=== PATIENT | male | born 1995 | race African-American/Black ===

== ENCOUNTER 2017-06-19 19:42 | Emergency (ER) | payer OTHER ==
[2017-06-19 19:51] VITALS: TEMP 98; BMI 37.9
--- NOTE | 2017-06-19 20:47 | PDOC ---
History of Present Illness - General History Source: Patient Exam Limitations: No Limitations - History of Present Illness Initial Comments: 06/19/17 22:25 The patient is a 21 year old male, with a significant past medical history of anxiety, who presents to the emergency department complaining of a panic attack earlier today. The patient reports he had a panic attack which he could not control with the usual relaxation techniques. Patient reports he tried his exercises, which he learned on youtube 5 times, and states they did not work so he decided to present to the ED. Patient reports he has panic attacks intermittently, and they are usually triggered by stress. The patient denies any hallucinations, or suicidal/homicidal ideations. He denies any chest pain, shortness of breath, diaphoresis, or palpitations. He denies any nausea, vomiting, diarrhea, constipation, or changes in urination patterns. He denies any recent travel or sick contacts. He has never seen a psychiatrist. Allergies: NKDA Past Surgical History: None reported Social History: Marijuana use. No ETOH, tobacco, or other recreational drug use. PCP: Dr. Wetzel <Maged Bacon - Last Filed: 06/19/17 22:25> <Jennie Albright - Last Filed: 06/20/17 03:07> - General Chief Complaint: Psychiatric Stated Complaint: PANIC ATTACK Time Seen by Provider: 06/19/17 20:47 Past History <Maged Bacon - Last Filed: 06/19/17 22:25> - Past Medical History Psychiatric Problems: Yes (panic attacks) - Psycho/Social/Smoking Cessation Hx Suicidal Ideation: No Smoking History: Never smoked Substance Use Type: Marijuana <Jennie Albright - Last Filed: 06/20/17 03:07> - Past Medical History Allergies/Adverse Reactions: Allergies Allergy/AdvReac Type Severity Reaction Status Date / Time No Known Allergies Allergy Verified 06/19/17 19:51 Review of Systems - Review of Systems Able to Perform ROS?: Yes Comments:: 06/19/17 22:25 GENERAL/CONSTITUTIONAL: No fever or chills. No weakness. HEAD, EYES, EARS, NOSE AND THROAT: No change in vision. No ear pain or discharge. No sore throat. CARDIOVASCULAR: No chest pain or shortness of breath. RESPIRATORY: No cough, wheezing, or hemoptysis. GASTROINTESTINAL: No nausea, vomiting, diarrhea or constipation. GENITOURINARY: No dysuria, frequency, or change in urination. MUSCULOSKELETAL: No joint or muscle swelling or pain. No neck or back pain. SKIN: No rash NEUROLOGIC: No headache, vertigo, loss of consciousness, or change in strength/ sensation. ENDOCRINE: No increased thirst. No abnormal weight change. HEMATOLOGIC/LYMPHATIC: No anemia, easy bleeding, or history of blood clots. ALLERGIC/IMMUNOLOGIC: No hives or skin allergy. PSYCH: Yes: +panic attacks. No suicidal or homicidal ideations. <Maged Bacon - Last Filed: 06/19/17 22:25> *Physical Exam - Vital Signs Last Vital Signs Temp Pulse Resp BP Pulse Ox 98 F 68 20 128/78 99 06/19/17 19:46 06/19/17 22:04 06/19/17 22:04 06/19/17 22:04 06/19/17 19:46 - Physical Exam Comments: 06/19/17 22:26 GENERAL: Awake, alert, and fully oriented, in no acute distress HEAD: No signs of trauma EYES: PERRLA, EOMI, sclera anicteric, conjunctiva clear ENT: Auricles normal inspection, hearing grossly normal, nares patent, oropharynx clear without exudates. Moist mucosa NECK: Normal ROM, supple, no lymphadenopathy, JVD, or masses LUNGS: Breath sounds equal, clear to auscultation bilaterally. No wheezes, and no crackles HEART: Regular rate and rhythm, normal S1 and S2, no murmurs, rubs or gallops ABDOMEN: Soft, nontender, normoactive bowel sounds. No guarding, no rebound. No masses EXTREMITIES: Normal range of motion, no edema. No clubbing or cyanosis. No cords, erythema, or tenderness NEUROLOGICAL: Normal speech, cranial nerves intact, negative pronator drift, 5/ 5 strength in all 4 extremities, normal sensation to light touch in all 4 extremities, normal cerebellar exam, normal gait, normal reflexes and tone SKIN: Warm, Dry, normal turgor, no rashes or lesions noted. PSYCH: Normal affect, does not appear anxious at this time, oriented to person, place, and time. The patient was able to demonstrate good judgment and reason, without hallucinations, abnormal affect or abnormal behaviors during the examination. Patient is not suicidal. <Maged Bacon - Last Filed: 06/19/17 22:25> - Vital Signs Last Vital Signs Temp Pulse Resp BP Pulse Ox 98 F 87 18 135/74 99 06/19/17 19:46 06/19/17 19:46 06/19/17 19:46 06/19/17 19:46 06/19/17 19:46 <Jennie Albright - Last Filed: 06/20/17 03:07> Medical Decision Making - Medical Decision Making 06/19/17 22:08 21-year-old healthy male presents with a likely resolved panic attack. Reports panic attacks p/w feeling a sensation of impending doom and that he is floating away from himself. Symptoms worse when smoking marijuana. No CP, SOB, palpitations, LOC. The patient reports that he has panic attacks from time to time and they're often triggered by stress. He has never been diagnosed by a psychiatrist with panic attacks but is requesting to be referred to one. His exam is unremarkable and psychiatrically he did not have any dangerous symptoms in the emergency department. Vitals are stable. No homicidal or suicidal ideation or hallucinations. Will discharge patient and refer to psychiatry. <Jennie Albright - Last Filed: 06/20/17 03:07> *DC/Admit/Observation/Transfer - Attestations Scribe Attestion: 06/19/17 22:26 Documentation prepared by Maged Bacon, acting as medical transcription for Jennie Albright MD. <Maged Bacon - Last Filed: 06/19/17 22:25> - Attestations Physician Attestion: 06/19/17 22:07 I, Dr. Jennie Albright MD, attest that this document has been prepared under my direction and personally reviewed by me in its entirety. I further attest, that it accurately reflects all work, treatment, procedures and medical decision -making performed by me. <Jennie Albright - Last Filed: 06/20/17 03:07> Diagnosis at time of Disposition: Panic attack as reaction to stress - Discharge Dispostion Disposition: HOME Condition at time of disposition: Stable - Referrals Referrals: Amos Wetzel MD [Primary Care Provider] - - Patient Instructions Printed Discharge Instructions: Anxiety and Panic Attacks (Alternative Therapy) Additional Instructions: Call to schedule an appointment with a psychiatrist. Follow up with your primary care doctor within 2-3 days. Return to the emergency department immediately for any new or concerning symptoms or if your symptoms get worse
[2017-06-19 22:04] VITALS: BP 128/78; PULSE 68
== END 2017-06-19 22:10 | disposition home or self-care (01) ==
LOC: JER 19:42
DX: F41.0 Panic disorder [episodic paroxysmal anxiety] (principal)
CPT/HCPCS: 99282-25

== ENCOUNTER 2017-10-19 17:04 | Emergency (ER) | payer OTHER ==
[2017-10-19 17:13] VITALS: BP 143/89; PULSE 91; TEMP 98; BMI 35.4
--- NOTE | 2017-10-19 17:15 | PDOC ---
Rapid Medical Evaluation Chief Complaint: Altered Mental Status Time Seen by Provider: 10/19/17 17:12 Medical Evaluation: Allergies Allergy/AdvReac Type Severity Reaction Status Date / Time No Known Allergies Allergy Verified 06/19/17 19:51 10/19/17 17:12 The patient presents with a chief complaint of: Congestion cold like symptoms for one week. On z-pac. states he is feeling "dazed" I have performed a brief in-person evaluation of this patient; Pertinent physical exam findings: Afebrile, Nasal congestion, CTAB I have ordered the following: Nothing The patient will proceed to the ED for further evaluation.
--- NOTE | 2017-10-19 18:21 | PDOC ---
History of Present Illness - General Chief Complaint: Cold Symptoms Stated Complaint: Feeling "dazed" having a cold Time Seen by Provider: 10/19/17 17:12 History Source: Patient - History of Present Illness Timing/Duration: other Associated Symptoms: denies: chest pain, cough, fever/chills, headaches, nausea/ vomiting Past History - Past Medical History Allergies/Adverse Reactions: Allergies Allergy/AdvReac Type Severity Reaction Status Date / Time No Known Allergies Allergy Verified 10/19/17 17:13 Home Medications: Ambulatory Orders Azithromycin 250 mg PO ASDIR 10/19/17 COPD: No Psychiatric Problems: Yes (panic attacks) - Suicide/Smoking/Psychosocial Hx Smoking History: Never smoked Information on smoking cessation initiated: No Hx Alcohol Use: No Drug/Substance Use Hx: No Substance Use Type: None, Marijuana Review of Systems - Review of Systems Constitutional: No: Chills, Fever HEENTM: Yes: Nose Congestion. No: Ear Pain Respiratory: Yes: Cough. No: Shortness of Breath Cardiac (ROS): No: Chest Pain ABD/GI: No: Nausea, Vomiting Neurological: No: Headache, Dizziness *Physical Exam - Vital Signs Last Vital Signs Temp Pulse Resp BP Pulse Ox 98 F 91 H 18 143/89 100 10/19/17 17:08 10/19/17 17:08 10/19/17 17:08 10/19/17 17:08 10/19/17 17:08 - Physical Exam General Appearance: Yes: Appropriately Dressed. No: Apparent Distress HEENT: positive: Normal ENT Inspection, Normal Voice. negative: Scleral Icterus (R), Scleral Icterus (L) Neck: positive: Supple Respiratory/Chest: negative: Respiratory Distress Integumentary: positive: Dry, Warm Neurologic: positive: Fully Oriented, Alert, Normal Mood/Affect, Motor Strength 5/5, Other ED Treatment Course - LABORATORY CBC & Chemistry Diagram: 10/19/17 18:19 10/19/17 18:19 Medical Decision Making - Medical Decision Making 10/19/17 18:16 21-year-old male history of panic attacks, not on any medications, here with a constellation of symptoms including intermittent confusion where he feels dazed with disorganized thoughts and a sense of "derealization" x 4 days. Denies auditory/visual hallucinations but reports that his sense of taste and smell seem to be different at times. Denies delusions, SI or HI. No current anxiety. No h/o similar sxs. No sig fmhx. No new meds except for zpack which his PMD, started him on for URI 4 days ago. States symptom was present prior to starting medication. Patient admits to smoking marijuana in the past but has since discontinued as it triggers his anxiety. Denies any other illicit drug use. See exam Possible mood vs thought disorder Not currently displaying signs of psychosis in ER and no SI or HI currently -will get basic labs today including TSH and utox -Anticipate dc w/ psych referral 10/19/17 19:21 Labs unremarkable. Patient remains stable in ED. Will discharge and stress the importance of f/u with psychiatry. Patient informs me that he has a psychiatrist in mind to follow-up with and will call tomorrow. I had extended conversation with patient's girlfriend in private, who states her relationship with patient is fairly new, but that she knows "something is wrong". States she will strongly encourage patient to follow-up with psychiatry. Strict return precautions given to patient and girlfriend *DC/Admit/Observation/Transfer Diagnosis at time of Disposition: Thought disorder - Discharge Dispostion Disposition: HOME Condition at time of disposition: Good - Referrals Referrals: Sabrina Gudino MD [Primary Care Provider] - - Patient Instructions Additional Instructions: Your labs were unremarkable. Please follow-up with your psychiatrist. If symptoms worsen such as you start hearing or seeing things that nobody else can hear or see or you have thoughts of hurting herself or other people, please return to the ER immediately - Post Discharge Activity
[2017-10-19 18:34] LABS: URINE APPEARANCE CLEAR; URINE BILIRUBIN NEGATIVE (NEGATIVE); URINE BLOOD NEGATIVE (NEGATIVE); URINE COLOR YELLOW; URINE GLUCOSE (UA) NEGATIVE (NEGATIVE); URINE KETONE 1+ (NEGATIVE); URINE LEUK ESTERASE NEGATIVE (NEGATIVE); URINE NITRITE NEGATIVE (NEGATIVE); URINE PROTEIN NEGATIVE (NEGATIVE); URINE UROBILINOGEN NEGATIVE mg/dL (0.2-1.0)
[2017-10-19 18:44] LABS: BASO % 1.1 % (0-2.0); HEMATOCRIT 46.2 % (35.4-49); HEMOGLOBIN 15.2 GM/dL (11.7-16.9); LYMPH % 46.2 % (8-40); MCH 27.7 pg (25.7-33.7); MCHC 32.9 g/dl (32.0-35.9); MEAN CELL VOLUME 84.3 fl (80-96); MEAN PLT VOLUME 9.2 fl (7.5-11.1); MONO % 6.2 % (3.8-10.2); NEUT % 45.5 % (42.8-82.8); PLATELET COUNT 203 K/MM3 (134-434); RBC 5.48 M/mm3 (4.00-5.60); WHITE BLOOD COUNT 5.6 K/mm3 (4.0-10.0)
[2017-10-19 18:48] LABS: COCAINE, UR NEGATIVE ng/ml (CUTOFF=300); OPIATES, URI NEGATIVE ng/ml (CUTOFF=300); URINE AMPHETAMINES NEGATIVE ng/ml (CUTOFF=500); URINE BARBITURATES NEGATIVE ng/ml (CUTOFF=200); URINE BENZODIAZEPINES NEGATIVE ng/ml (CUTOFF=200)
[2017-10-19 18:49] LABS: METHADONE, UR NEGATIVE ng/ml (CUTOFF=300); PHENCYCLIDINE,URINE NEGATIVE ng/ml (CUTOFF=25)
[2017-10-19 19:08] LABS: ALBUMIN 4.2 g/dl (3.4-5.0); ALK PHOS 85 U/L (45-117); ANION GAP 7 (8-16); BILIRUBIN,TOTAL 0.9 mg/dL (0.2-1.0); BLOOD UREA NITROGEN 13 mg/dL (7-18); CHLORIDE 103 mmol/L (98-107); CO2 27 mmol/L (21-32); CREATININE 0.9 mg/dL (0.7-1.3); GLUCOSE,RANDOM 85 mg/dL (74-106); POTASSIUM 4.2 mmol/L (3.5-5.1); SGOT/AST 17 U/L (15-37); SGPT/ALT 25 U/L (12-78); SODIUM 137 mmol/L (136-145)
== END 2017-10-19 19:29 | disposition home or self-care (01) ==
LOC: JERFT 17:04
DX: F41.0 Panic disorder [episodic paroxysmal anxiety] (principal)
CPT/HCPCS: 36415; 80053; 80307; 81003; 84443; 85025; 99281-25